=== PATIENT | female | born 1960 ===

== ENCOUNTER 2025-09-30 13:38 | Outpatient (AMB) | payer BC, MEDICARE, SELFPAY ==
--- NOTE | 2025-09-30 14:04 | A.OFFVIS_ITS ---
Intake Visit Reasons: 6m Allergies No Known Allergies Allergy (Verified 09/30/25 14:08) Medication List - Last Reconciled 09/30/25 by Shantelle Bell CNP atorvastatin 20 mg PO DAILY cetirizine 10 mg PO DAILY levothyroxine 75 mcg PO DAILY propranolol 80 mg PO BID 90 days rimegepant (Nurtec ODT) mg PO topiramate 100 mg PO BID HPI Comments Details: She was doing okay. Migraines were okay, happening about 5x/month. Nurtec as needed helped. Stress was okay.?Sleep was okay. 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 She had bad month in 03/2024 and 04/2024 with almost daily headaches. Her son graduated from medical school in 02/2024 and is in [place] for neurology residency. Hx of migraines without aura starting in her mid-30s. Triggers include stress, as well as hormonal cycling when she was still menstruating. No food or sleep-related triggers identified. She usually gets a right frontal throbbing headache with photophobia, sonophobia, sensitivity to smells, and nausea. It can last several hours to several days. Imitrex usually helped, but she felt sick with medication. She also tried eletriptan in the past. Headaches increased after COVID in 02/2023 and 01/2021. Had pneumonia and loss of smell. [facility] Medical History (Updated 09/30/25 @ 14:06 by Shantelle Bell CNP) Chronic migraine w/o aura w/o status migrainosus, not intractable Migraine Social History (Updated 09/29/25 @ 13:42 by Brittney Land MA) Alcohol intake: current Alcohol intake frequency: does not drink Patient Tobacco Use Status: Never used Tobacco Review of Systems Const Denies chills, Denies daytime sleepiness, Denies difficulty sleeping, Denies fatigue, Denies fever(s), Denies frequent falls, Reports headache(s), Denies increased appetite, Denies poor appetite, Denies snoring, Denies weakness, Denies weight gain and Denies weight loss Eyes Denies loss of vision ENT Denies vertigo, Denies dizziness, Reports headache(s) and Denies neck pain Card Denies chest pain at rest, Denies chest pain with activity, Denies syncope, Denies leg edema, Denies palpitations, Denies dyspnea and Denies dyspnea on exertion Resp Denies cough, Denies dyspnea, Denies dyspnea on exertion and Denies snoring GI Denies abdominal pain, Denies constipation, Denies heartburn, Denies diarrhea and Denies nausea Denies urinary frequency, Denies urinary incontinence and Denies urinary urgency Musc Denies abnormal gait, Denies back pain, Denies myalgias, Denies arthralgias, Denies neck pain, Denies numbness and Denies tingling Neuro Denies abnormal gait, Denies vertigo, Denies dizziness, Denies syncope, Denies frequent falls, Reports headache(s), Denies lack of coordination, Denies loss of vision, Denies memory loss, Denies numbness, Denies Other visual disturbances, Denies restless legs, Denies seizure-like activity, Denies tingling, Denies paresthesias, Denies tremor(s) and Denies weakness Psych Denies anxiety, Denies depression, Denies auditory hallucinations, Denies memory loss and Denies visual hallucinations Endo Denies fatigue and Denies palpitations Physical Exam Const Other: General Appearance:? normal, in no acute distress. Heart:? S1, S2 normal, no murmurs. Lungs:? clear anteriorly and posteriorly. Musculoskeletal:? normal. Extremities:? no edema. Psych:? alert, oriented, cognitive function intact, cooperative with exam. Neuro Other: Abnormal Neurological Findings:?none.? Mental Status: alert and oriented X 3. Normal attention, orientation, memory, and affect. Cranial Nerves: Pupils are equal, round, and reactive to light. External ocular muscles are intact. Visual moreira are full, no ptosis. Face is symmetrical, no facial weakness or droop. Facial sensations are normal. Tongue protrudes in midline. Palate elevates symmetrically. Shoulder shrugging is normal Motor Examination: Normal muscle tone, bulk and strength. No atrophy or fasciculations. No drift of the extended upper extremities. DTR 2+. Plantars are flexor. Sensory Exam: Normal light touch, temperature, pinprick, vibration, and joint- position sensations. Rhomberg sign is absent. Coordination: No ataxia. No titubation. Gait Exam: Within normal limits. Cerebellar Signs: [id number] is okay. Extrapyramidal System: No tremor, rigidity with normal facial expressions. No bradykinesia. No bradyphrenia. Normal arm swing and posture. No propulsion or retropulsion. Speech: Normal. Assessment & Plan Assessment & Plan (1) Migraine: Code(s): G43.909 - Migraine, unspecified, not intractable, without status migrainosus Category: Medical Qualifiers: Intractability: not intractable Migraine type: unspecified Status migrainosus presence: without status migrainosus Qualified Code(s): G43.909 - Migraine, unspecified, not intractable, without status migrainosus Plan: Continue propranolol 80mg 1 tablet twice a day. Continue topiramate 100mg 1 tablet twice a day. Continue Nurtec 75mg 1 tablet as needed for migraine #8 for 30 days. She tried and failed sumatriptan and eletriptan. Follow up in 6 months or sooner as needed. Plan Meds tried: sumatriptan, eletriptan, propranolol, topiramate Medications: New topiramate 100 mg PO BID 180 tabs 1RF 90 days rimegepant (Nurtec ODT) 75 mg PO DAILY PRN 8 tabs 5RF migraine headache 30 days Coding Level of Care Code Est Pt Level 4 (22409) Diagnoses Migraine without status migrainosus, not intractable, unspecified migraine type G43.909 Intractability: not intractable Migraine type: unspecified Status migrainosus presence: without status migrainosus
--- OUTSIDE RECORDS SUMMARY | 2025-09-30 21:09 | XMS_ITS | Clinical Summary ---
Author Organization [facility] [address] [facility] Building Address [address] [place] [phone] Phone Care Team Providers Care Business Account Leader Name Role Phone Jem Davila MD Primary Care Provider [phone] Allergies Active Allergy Reactions Criticality Noted Date Comments Fruit Extracts Swelling 02/12/2017 Honeydew melon, pineapple Penicillins 07/21/2019 Unknown allergy, but states she does not take them Medications rimegepant (Nurtec) 75 mg dispersible tablet Take by mouth. Active topiramate (TOPAMAX) 50 mg tablet 1 tab daily in AM, 2 tabs qhs 9 Active propranoloL (INDERAL) 80 mg tablet Take 1 tablet (80 mg total) by mouth 2 (two) times a day. 8 Active multivit-minerals/f olic acid (MULTIVITAMIN GUMMIES ORAL) Take by mouth. 7 Active cetirizine (ZyrTEC) 10 mg tablet Take 1 tablet (10 mg total) by mouth 1 (one) time each day. 30 each 2 5 Active levothyroxine (SYNTHROID, LEVOTHROID) 75 mcg tablet TAKE 1 TABLET BY MOUTH DAILY 90 tablet 1 5 Active atorvastatin (LIPITOR) 20 mg tablet TAKE ONE TABLET BY MOUTH EVERY DAY 90 tablet 1 5 Active oxyCODONE (ROXICODONE) 5 mg immediate release tabletIndications:S ymptomatic cholelithiasis Take 1 tablet (5 mg total) by mouth every 6 (six) hours if needed for severe pain. Max Daily Amount: 20 mg 12 tablet Active ibuprofen (ADVIL,MOTRIN) 600 mg tablet Take 1 tablet (600 mg total) by mouth every 8 (eight) hours if needed for mild pain. 60 tablet Active Active Problems Problem Noted Date Diagnosed Date Symptomatic cholelithiasis 06/17/2025 Hyperlipidemia 02/13/2017 Hypothyroidism 02/13/2017 Colon polyp 02/12/2017 Nephrolithiasis 02/12/2017 Migraine 02/12/2017 Overview (10/02/2024): Dr Chaney Encounters Date Type Department Care Team Description 09/10/2025 Results Follow-Up Internal Medicine - [address] [phone] Jem Davila MD 09/09/2025 1:30 PM EST Lab Draw Station - [address] [phone] Mixed hyperlipidemia; Hypothyroidism, unspecified type 09/09/2025 1:00 PM EST Office Visit Internal Medicine - [address] [phone] Jem Davila MD Mixed hyperlipidemia (Primary Dx); Hypothyroidism, unspecified type; Migraine without aura and without status migrainosus, not intractable; Immunization due 09/02/2025 10:30 AM EST Office Visit General Surgery - [address] [phone] Pedro Borden, DO S/P laparoscopic cholecystectomy (Primary Dx) 08/25/2025 Telephone [facility] Surgery [address] [phone] Pedro Borden DO 08/20/2025 7:32 AM EDT Anesthesia Event [facility] Main OR [address] [place] [phone] Goyo Lee MD 08/20/2025 7:30 AM EDT - 08/20/2025 9:30 AM EDT Surgery [facility] Main OR [address] [place] [address] Pedro Borden DO DAVINCI CHOLECYSTECTOMY [69175 (CPT )] 08/20/2025 5:57 AM EDT - 08/20/2025 10:39 AM EDT Hospital Encounter [facility] Main OR [address] [place] [address] Pedro Boredn DO Symptomatic cholelithiasis Discharge Disposition: Home or Self Care from Last 3 Months Immunizations Immunization Administration Dates Next Due Influenza Quadravalent, MDCK , 0.5ml, preservative free (Flucelvax) 6mo and older 08/02/2023 Influenza Quadravalent, MDCK , 0.5ml, with preservative (Flucelvax) 6mo and older 08/01/2023 Influenza Quadrivalent, 0.5m l, preservative free (Fluarix; FluLaval; Fluzone) ages 6mo and older (Afluria) 3yo and older 09/05/2022,09/21/2021,07/06/2020 Influenza trivalent, 0.5mL ( Fluad) 65yo and older 09/09/2025 Tdap Tetanus diptheria acell ular pertussis (Boostrix; Adacel) 7yo and older 06/19/2017 Zoster recombinant (Shingrix ) 19yo and older 09/22/2020,07/19/2020 Surgical History Surgery Date Site/Laterality Comments NO PAST SURGERIES WISDOM TOOTH EXTRACTION Medical History Medical History Date Comments Patient denies medical problems DX:Patient denies medical problems Hyperlipidemia Hypertension GERD (gastroesophageal reflux disease) Cholelithiasis Kidney stones Family History Medical History Relation Name Comments No Known Problems Father No Known Problems Mother Colon cancer Paternal Grandfather Breast cancer Neg Hx Coronary artery disease Neg Hx Diabetes Neg Hx Hypertension Neg Hx Other cancer Neg Hx Relation Name Status Comments Father Mother Paternal Grandfather Social History Tobacco Use Types Packs/Day Years Used Date Smoking Tobacco: Never Smokeless Tobacco: Never Alcohol Use Standard Drinks/Week Comments Not Currently 0 (1 standard drink = 0.6 oz pur e alcohol) Interpersonal Safety Answer Date Record ed Physical Abuse Unrecognized value 08/20/2025 Verbal Abuse Unrecognized value 08/20/2025 Comments No Sex and Gender Information Value Date Recorded Sex Assigned at Not on file Legal Sex Female 10:40 AM EST Gender Identity Not on file Sexual Orientation Not on file Obstetrics History Para Term AB IAB SAB Ectopic Multiple Livin g Live Births 1 1 1 1 Date Outcome GA Total Labor Labor/2nd/3rd Weight Sex Type Anes PTL Bailey A1 A5 Name Clin Term Last Filed Vital Signs Vital Sign Reading Time Taken Comments Blood Pressure 130/81 09/09/2025 1:05 PM EST Pulse 62 09/09/2025 1:05 PM EST Temperature 36.1 C (97 F) 08/20/2025 9:46 AM EDT Respiratory Rate 18 08/20/2025 9:46 AM EDT Oxygen Saturation 98% 08/20/2025 9:46 AM EDT Inhaled Oxygen Concentration - - Weight 67.9 kg (149 lb 9.6 oz) 09/09/2025 1:05 P M EST Height 160 cm (5' 3 ) 09/02/2025 10:31 AM EST Body Mass Index 26.5 09/02/2025 10:31 AM EST Plan of Treatment Upcoming Encounters Date Type Department Care Team (Late st Contact Info) Description 02/19/2026 3:00 PM EDT Office Visit Internal Medicine - [address] [phone] Jem Davila MD [address] [place] [address] 03/26/2026 3:00 PM EDT Appointment Radiology Department - [address] [phone] Health Maintenance Due Date Last Done Comments Colorectal Cancer Screening: Colonoscopy 1960 Pneumococcal Vaccine: 50+ Years (1 of 1 - PCV) 2010 Medicare Annual Wellness Visit 09/30/2022 Osteoporosis Screening (Bone Density Screening) 09/30/2022 COVID-19 Vaccine ( season) 2025 12/05/2021, 03/24/2021, 02/03/2021 Social Influencers of Health Screening 02/04/2026 02/04/2025 Falls Risk Assessment 08/20/2026 08/20/2025 Cervical Cancer Screening: HPV 01/02/2027 01/02/2022 Breast Cancer Screening 03/11/2027 03/11/20, 07/09/2023, 04/10/2022, Additional history exists DTaP,Tdap,and Td Vaccines (2 - Td or Tdap) 06/19/2027 06/19/2017 Cholesterol Screening (Lipid Panel) 09/24/2029 09/24/2024 RSV Immunization Adult Patients (1 - 1-dose 75+ series) 2035 Hepatitis C Screening Completed 02/12/2017 Zoster Vaccines Completed 09/22/2020, 07/19/2020 Depression Screening Completed 09/09/2025, 02/01/20 Influenza Vaccine Completed 09/09/2025, , 08/01/2023, Additional history exists HIB Vaccines Aged Out No longer eligi ble based on patient's age to complete this topic HPV Vaccines Aged Out No longer eligi ble based on patient's age to complete this topic Hepatitis A Vaccines Aged Out No long er eligible based on patient's age to complete this topic Hepatitis B Vaccines Aged Out No long er eligible based on patient's age to complete this topic IPV Vaccines Aged Out No longer eligi ble based on patient's age to complete this topic MMR Vaccines Aged Out No longer eligi ble based on patient's age to complete this topic Meningococcal ACWY Vaccine Aged Out N o longer eligible based on patient's age to complete this topic Meningococcal B Vaccine Aged Out No l onger eligible based on patient's age to complete this topic RSV Immunization Patients Under 20 months Aged Out No longer eligible based on patient's age to complete this topic Varicella Vaccines Aged Out No longer eligible based on patient's age to complete this topic Procedures Procedure Name Priority Date/Time Associated Diagnosis Comments THYROID STIMULATING HORMONE WITH REFLEX TO FREE T4 AND FREE T3 Routine 09/09/2025 1:34 PM EST Hypothyroidism, unspecified type COMPREHENSIVE METABOLIC PANEL Routine 09/09/2025 1:34 PM EST Mixed hyperlipidemia TISSUE EXAM Routine 08/20/2025 8:33 AM EDT Symptomatic cholelithiasis TH AN ENDOTRACHEAL(NO CHARGE) Routine 08/20/2025 7:[address] LAPAROSCOPY SURGICAL CHOLECYSTECTOMY 08/20/2025 7:32 AM EDT Symptomatic cholelithiasis Special Needs Robotic Cholecystectomy -- Asking 90 Minutes for this case. PROCEDURAL ECG Routine 08/14/2025 11:14 AM EDT Calculus of gallbladder without cholecystitis without obstruction MG MAMMO DIGITAL SCREENING W BA BILAT Routine 03/11/2025 4:05 PM EDT Encounter for screening mammogram for breast cancer LIPID PANEL WITH REFLEX TO DIRECT LDL Routine 09/24/2024 3:33 PM EST Hyperlipemia HM DEPRESSION SCREENING Routine 02/01/2024 HM HPV Routine 01/02/2022 HEPATITIS C SCREENING Routine 02/12/2017 from Last 3 Months or Most Recently Relevant to Health Maintenance Results * Thyroid stimulating hormone with reflex to free t4 and free t3 (09/09/2025 1:34 PM EST) TSH 0.74 0.40 - 4.00 mcIU/mL 09/09/2025 7:[address] [facility] Blood Venous blood specimen / Unknown Venipuncture / Unknown 09/09/2025 1:34 PM EST 09/09/2025 1:34 PM EST us Jem Davila MD LAB BLOOD ORDERABLES Final Resu lt [facility] [address] [place] [address], [place] [phone] * Comprehensive metabolic panel (09/09/2025 1:34 PM EST) Sodium 142 133 - 145 mmol/L 09/09/2025 7:07 PM [facility] Potassium 4.3 3.5 - 5.5 mmol/L 09/09/2025 7:07 PM [facility] Chloride 107 96 - 110 mmol/L 09/09/2025 7:07 PM [facility] CO2 24 21 - 32 mmol/L 09/09/2025 7:07 PM [facility] Anion Gap 11 3 - 11 09/09/2025 7:07 PM [facility] Glucose 96 70 - 100 mg/dL 09/09/2025 7:07 PM [facility] BUN 12 5 - 25 mg/dL 09/09/2025 7:07 PM [facility] Creatinine 0.89 0.50 - 1.10 mg/dL 09/09/2025 7:07 PM [facility] eGFR 72 >=60 mL/min/1. 73m2 09/09/2025 7:07 PM [facility] Comment:Calculation based on the Chronic Kidney Disease Epidemiology Collaboration (CKD-EPI) equation refit without adjustment for race. BUN/Creatinine Ratio 13.5 09/09/2025 7:07 PM [facility] Calcium 9.4 8.5 - 10.5 mg/dL 09/09/2025 7:07 PM [facility] AST (SGOT) 17 10 - 42 unit/L 09/09/2025 7:07 PM [facility] ALT (SGPT) 24 10 - 60 unit/L 09/09/2025 7:07 PM [facility] Alkaline Phosphatase 118 42 - 121 unit/L 09/09/2025 7:07 PM [facility] Total Protein 7.0 6.0 - 8.0 g/dL 09/09/2025 7:[address] [facility] Albumin 3.9 3.2 - 5.0 g/dL 09/09/2025 7:[address] [facility] Total Bilirubin 0.3 0.0 - 1.4 mg/dL 09/09/2025 7:[address] [facility] Blood Venous blood specimen / Unknown Venipuncture / Unknown 09/09/2025 1:34 PM EST 09/09/2025 1:34 PM EST us Jem Davila MD LAB BLOOD ORDERABLES Final Resu lt [facility] [address] [place] [address], [place] [phone] * Tissue exam (08/20/2025 8:33 AM EDT) Final Diagnosis A. Gallbladder, GALLBLADDER, cholecystectomy: - Chronic cholecystitis, cholelithiasis, and focal intestinal metaplasia. 08/21/2025 3:[address] [facility] at 1559 EDT Gross Description A. Gallbladder, GALLBLADDER: Labeled gallbladder . Received in formalin is an intact 8.2 cm in length gallbladder with a clipped segment of cystic duct. The cystic duct has a diameter of 0.4 cm and is inked red. No periductal lymph node is grossly identified. The serosa is smooth to wrinkled, chung-blue to focally green, and is inked green. The adventitia is shaggy, cauterized and inked blue. The maximal gallbladder circumference is 3.3 cm. The lumen contains brown-yellow viscid bile. A 2.1 x 1.3 x 1 cm granular, black-green calculi is identified in the fundus. The mucosa is velvety and freeman-pink. The wall (muscularis) thickness averages 0.1 cm. No distinct masses or lesions are grossly identified. Tile Shader sections are submitted in one cassette including gallbladder (fundus, body and neck), duct margin (red), and cross-section adjacent to duct margin (black), five pieces. KR 08/21/2025 3:[address] [facility] Disclaimer Unless otherwise specified, all tissue is 10% NB formalin fixed and paraffin embedded. 08/21/2025 3:[address] [facility] Tissue Gallbladder structure / Unknown 08/20/2025 8:33 AM EDT 08/20/2025 9:25 AM EDT us Pedro Borden DO LAB PATHOLOGY ORDERABLES Final Result [facility] [address] [place] [address], [place] [phone] * TH AN ENDOTRACHEAL(NO CHARGE) (08/20/2025 7:49 AM EDT) Kishan Kimbrough CRNA - 08/20/2025 7:49 AM EDT Kishan Curry CRNA 08/20/2025 7:50 AM General Information and Staff Patient location during procedure: OR Anesthesiologist: Jh Conroy MD Performed: anesthesiologist Performed by: Kishan Curry CRNA Authorized by: Goyo Lee MD Intubation Airway not difficult Reason: elective Final Airway Details Successful airway: ETT Cuffed: yes Successful intubation technique: direct laryngoscopy Adjuncts used in placement: intubating stylet Endotracheal tube insertion site: oral Blade: Stone Blade size: #3 ETT size (mm): 7.0 Cormack-Lehane Classification: grade IIa - partial view of glottis Placement verified by: chest auscultation and capnometry Cuff volume (mL): 7 Measured from: lips ETT to lips (cm): 20 Final airway type: endotracheal airway Indications and Patient Condition Indications for airway management: anesthesia Sedation level: Yes Preoxygenated: yesSoft Tissue Damage: No Dentition Unchanged: Yes Patient position: sniffing MILS maintained throughout Mask difficulty assessment: 1 - vent by mask us Goyo Lee MD ANESTHESIA ORDERABLES Final Re sult * ECG 12 lead - Procedural (No Charge) (08/14/2025 11:14 AM EDT) Ventricular Rate ECG 62 BPM GEMUSE Atrial Rate 62 BPM GEMUSE P-R Interval 218 ms GEMUSE QRS Duration 78 ms GEMUSE Q-T Interval 416 ms GEMUSE QTc 422 ms GEMUSE P Wave Colton 33 degrees GEMUSE R Colton -12 degrees GEMUSE T Colton -3 degrees GEMUSE ECG Interpretation Sinus rhythm with 1st degree A-V block Low voltage QRS Nonspecific T wave abnormality Abnormal ECG No previous ECGs available Confirmed by Jocelyne PARMAR JAMES ([id number]) on 08/14/2025 6:33:49 PM GEMUSE 08/14/2025 11:1 4 AM EDT 08/14/2025 6:33 PM EDT us Pedro Borden DO ECG ORDERABLES Final Result GEMUSE * MG Mammo Digital Screening w Ba bilat (03/11/2025 4:05 PM EDT) Anatomical Region Laterality Modality Breast Bilateral Mammography 03/12/2025 1:29 PM EDT Impressions 03/12/2025 1:35 PM EDT 1. No mammographic evidence of malignancy 2. Heterogeneous breast parenchyma BI-RADS CATEGORY: 2 - BENIGN RECOMMENDATION: Screening bilateral mammogram is recommended in 1 year. Mammo Location: [facility], [address] [place] [address], [id number], . -------- FINAL REPORT -------- Dictated By: Andrew Cespedes Dictated Date: 03/12/2025 13:29 ET Assigned Physician: Andrew Cespedes Reviewed and Electronically Signed By: Andrew Cespedes Signed Date: 03/12/2025 13:35 ET Workstation ID: [id number] Transcribed By: Self Edit Transcribed Date: 03/12/2025 13:29 ET Narrative 03/12/2025 1:35 PM EDT A BILATERAL DIGITAL 3D SCREENING MAMMOGRAPHY HISTORY: Routine screening. No family history of breast cancer. COMPARISON: Multiple priors dating back to 01/31/2021 Technique: Bilateral full field digital mammography (3D) was performed using standard CC and MLO projections CAD was used to evaluate this mammogram. FINDINGS: Right: No suspicious masses, groups of microcalcification or areas of architectural distortion identified. Stable typically benign parenchymal asymmetries. Left: No suspicious masses, groups of microcalcification or areas of architectural distortion identified. Stable typically benign parenchymal asymmetries. BREAST DENSITY: C - The breasts are heterogeneously dense which may obscure small masses. Procedure Note Andrew Cespedes MD - 03/12/2025 A BILATERAL DIGITAL 3D SCREENING MAMMOGRAPHY HISTORY: Routine screening. No family history of breast cancer. COMPARISON: Multiple priors dating back to 01/31/2021 Technique: Bilateral full field digital mammography (3D) was performedusing standard CC and MLO projections CAD was used to evaluate this mammogram. FINDINGS: Right: No suspicious masses, groups of microcalcification or areas ofarchitectural distortion identified. Stable typically benign parenchymalasymmetries. Left: No suspicious masses, groups of microcalcification or areas ofarchitectural distortion identified. Stable typically benign parenchymalasymmetries. BREAST DENSITY: C - The breasts are heterogeneously dense which mayobscure small masses. IMPRESSION: 1. No mammographic evidence of malignancy 2. Heterogeneous breast parenchyma BI-RADS CATEGORY: 2 - BENIGN RECOMMENDATION: Screening bilateral mammogram is recommended in 1 year. Mammo Location: [facility], [address] [place] [address], [id number], . -------- FINAL REPORT -------- Dictated By: Andrew Cespedes Dictated Date: 03/12/2025 13:29 ET Assigned Physician: Andrew Cespedes Reviewed and Electronically Signed By: Andrew Cespedes Signed Date: 03/12/2025 13:35 ET Workstation ID: [id number] Transcribed By: Self Edit Transcribed Date: 03/12/2025 13:29 ET Jem Davila MD IMG BI PROCEDURES Final Result * (ABNORMAL) Lipid panel with reflex to direct LDL (09/24/2024 3:33 PM EST) [facility] Cholesterol 190 0 - 200 mg/dL LAB CHEMISTRY METHOD 09/24/2024 7:[address] [facility] Triglycerides 148 0 - 150 mg/dL LAB CHEMISTRY METHOD 09/24/2024 7:11 PM [facility] HDL 53 >=40 mg/dL LAB CHEMISTRY METHOD 09/24/2024 7:11 PM [facility] LDL Calculated 107(H) 0 - 100 mg/dL LAB CHEMISTRY METHOD 09/24/2024 7:11 PM [facility] VLDL Cholesterol Srini 29.6 mg/dL LAB CHEMISTRY METHOD 09/24/2024 7:11 PM [facility] Non HDL Chol. (LDL+VLDL) 137 <145 mg/dL LAB CHEMISTRY METHOD 09/24/2024 7:11 PM [facility] Chol/HDL Ratio 3.6 0.0 - 4.4 LAB CHEMISTRY METHOD 09/24/2024 7:11 PM [facility] Blood Venous blood specimen / Unknown Venipuncture / Unknown 09/24/2024 3:33 PM EST 09/24/2024 3:33 PM EST [facility] LAB BLOOD ORDERABLES Fi nal Result [facility] [address] [place] [address], * Depression Screening (02/01/2024) Pathologist [facility] Depression Screening abstracted Historical Provider HEALTH MAINTENANCE Final Result * Cervical Cancer Screening: HPV (01/02/2022) [facility] Cervical Cancer Screening: HPV abstracted, negative Historical Provider HEALTH MAINTENANCE Final Result * Hepatitis C Screening (02/12/2017) [facility] Hepatitis C Screening abstracted us Historical Provider HEALTH MAINTENANCE Final Result from Last 3 Months or Most Recently Relevant to Health Maintenance Insurance MEDICAID - [place] MEDICARE [facility] Advance Directives * Full Code - Default (Latest Code Status on File) Date Activated Date Inactivated Comments 08/20/2025 6:09 AM 08/20/2025 12:44 PM This is o rder is used when code status has not been discussed with the patient, or code status is otherwise unknown/unconfirmed To update the patient's code status, place a code status order. Do not modify or discontinue any currently active code status orders. Care Teams Business Account Leader Relationship Specialty Start Date End Date Jem Davila MD [address] [place] [address] [place] [address] PCP - General Internal Medicine 08/29/24
--- OUTSIDE RECORDS SUMMARY | 2025-09-30 21:09 | XMS_ITS ---
Author Name [facility] Organization Unknown Care Team Organization Name Specialty Phone Email Start Date End Da te [facility] Jem Davila Primary Care 12/27/20222023 [facility] Génesis Parsons Primary [facility] 08/29/2022
--- OUTSIDE RECORDS SUMMARY | 2025-09-30 21:09 | XMS_ITS | Encounter Summary ---
Author Organization [employer] Address [address] [place] [address] Care Team Providers Care Supervisor [employer] Name Role Phone Jem Davila MD Primary Care Provider Encounter Details Date Type Department Care Team (Late Contact Info) Description 09/10/2025 [facility] [address] [place] [phone] Jem Davila MD [address] [place] [phone] Social History Tobacco Use Types Packs/Day Years [...] on file Sexual Orientation Not on file documented as of this encounter Plan of Treatment Upcoming Encounters Date Type Department Care Team (Late Contact Info) Description 02/19/2026 3:00 PM EDT Office Visit Internal Medicine - [address] [place] [phone] Jem Davila MD [address] [place] [address] 03/26/2026 3:00 PM EDT Appointment Radiology Department [address] [phone] documented as of this encounter Visit Diagnoses Not on filedocumented in this encounter Additional Health Concerns Assessment Noted Time PHQ-9 Depression Total Score: 0 09/09/20 25 1:06 PM EST documented as of this encounter Care Teams Supervisor [employer] Relationship Specialty Start Date End Date Jem Davila MD [address] [place] [address] PCP - General Internal Medicine 08/29/24 documented as of this encounter
== END 2025-09-30 14:23 | disposition home or self-care (01) ==
PROVIDERS: PCP Internal Medicine; Referring Provider Internal Medicine; Visit Provider Registered Nurse
DX: G43.909 Migraine, unspecified, not intractable, without status migrainosus (principal)
CPT/HCPCS: 99214

== ENCOUNTER 2025-10-02 12:27 | Outpatient (AMB) | payer MEDICARE, SELFPAY ==
--- NOTE | 2025-10-02 12:29 | A.PHYSOV ---
Vital Signs 10/02/25 12:32 Height 5 ft 3 in Weight 150 lb BMI 26.6 Intake Visit Reasons: left wrist injection Intake Note: Patient is a 65 year old female here for a left wrist injection last injections lasted more then 6 months Allergies No Known Allergies Allergy (Verified 09/30/25 14:08) FORMERLY [facility], [facility] Medical History (Updated 10/05/25 @ 08:49 by SILVIA Diallo) Chronic migraine w/o aura w/o status migrainosus, not intractable Migraine Social History (Updated 09/29/25 @ 13:42 by Brittney Land MA) Alcohol intake: current Alcohol intake frequency: does not drink Patient Tobacco Use Status: Never used Tobacco Use of substances other than those prescribed or required for medical reasons: No Physical Exam Vital Signs: BMI result Body Mass Index 26.6 Office Procedures AMB Wrist Injection Wrist Joint injection Procedure Details: The patient was educated about the risks, complications and benefits left distal radial ulnar joint injection. She is eager to proceed. She was cleansed over the DRUJ with iodine. She was then anesthetized with ethyl chloride. I then injected 20 mg of Kenalog and 0.5 mL of 2% lidocaine into the joint. Patient tolerated the procedure well without immediate complication. She was cleansed with an alcohol prep and a Band-Aid was applied. Wrist Joint Injection : Left Procedure code (CPT) selection complete Office Meds Kenalog 40 mg/mL suspension for injection Performing Provider: SILVIA Diallo [facility] Administered by: SILVIA Diallo on 10/05/25 08:50 Dose Route Admin Location Dispensed Lot Number Expiration Date [facility] [employer] 20 mg intra-articular 1 mL [id number] [employer] Total Dispensed Waste 1 mL 50 % lidocaine (PF) 20 mg/mL (2 %) injection solution Performing Provider: SILVIA Diallo Performing Location: [facility] Administered by: SILVIA Diallo on 10/05/25 08:50 Dose Route Admin Location Dispensed Lot Number Expiration Date [facility] [employer] 60 mg intra-articular 5 mL [id number] [facility] [employer] Total Dispensed Waste 5 mL 40 % Assessment & Plan Assessment & Plan (1) Left wrist pain: Code(s): M25.532 - Pain in left wrist Category: Medical Plan Ms. Liriano is a 65-year-old female seen in evaluation today for distal radial ulnar joint osteoarthritis. Today she consented to corticosteroid injection. She was given post-injection instructions, recommend: Moist heat compresses for 15 minutes up to 5 times daily. Continue her home exercise plan and medications as prescribed. Follow-up with our office as needed. Thank you for allowing me to participate in the care of your patient. Orders: Orders AMB Wrist Injection 10/02/25 M25.532 - Pain in left wrist Coding Level of Care Code Procedure Only Diagnoses Left wrist pain M25.532 CPT Codes Wrist Joint injection - Ankle Joint Injection 43401: Left ([id number])
[2025-10-02 12:32] VITALS: BMI 26.6
== END 2025-10-02 12:49 | disposition home or self-care (01) ==
LOC: HO.HPHYS 12:27
PROVIDERS: PCP Internal Medicine; Visit Provider Physician Assistant
DX: M25.532 Pain in left wrist (principal)
CPT/HCPCS: 20605

== ENCOUNTER → 2025-10-02 12:27 | Outpatient (BNVA) | payer MEDICARE, SELFPAY | PROVIDERS: PCP Internal Medicine; Visit Provider Physician Assistant | DX: M25.532 Pain in left wrist (principal) | CPT/HCPCS: 20605; J2003; J3301 ==